=== PATIENT | female | born 1975 | race African-American/Black ===

== ENCOUNTER 2016-10-26 09:19 | Day surgery (SDC) | payer BC, MEDICAID ==
--- NOTE | 2016-10-25 09:34 | HISTORY AND PHYSICAL E ---
History and Physical NAME: KRISTOPHER PASCAL : 1975 AGE: 41Y ADMITTED: 10/26/2016 ROOM: CHIEF COMPLAINT: Reflux, hiatal hernia. HISTORY OF PRESENT ILLNESS: Known to me. Upper scope in 2007 shows hernia and reflux. Now, she has exacerbation of symptoms. She is for upper endoscopy. The patient presented for upper scope, awaiting gallbladder ultrasound. She did have upper scope, colonoscope, Dr. Fields. She does have reflux and constipation, abdominal pain, tummy tuck, multiple surgeries, hysterectomy, multiple recurrent abdominal wall abscesses. her primary was Dr. . PAST SURGICAL HISTORY: 1. C section x2. 2. Tummy tuck. 3. Hysterectomy. MEDICATIONS: 1. Ambien. 2. Xanax. 3. Wellbutrin. REVIEW OF SYSTEMS: CARDIAC: Negative. RESPIRATORY: Negative. ENDOCRINE: Negative. NEUROPSYCH: Mild depression. PHYSICAL EXAMINATION: VITAL SIGNS: Blood pressure is 120/80, pulse 80, respirations 18, temp is 98. HEAD, EYES, EARS, NOSE, THROAT: Normal. NECK: Supple. CARDIOVASCULAR: Normal. LUNGS: Clear. ABDOMEN: Soft. NEUROLOGIC: Exam negative. CONCLUSION: 1. Reflux. 2. Abdominal pain. 3. Nausea. 4. Vomiting. PLAN: 1. Upper scope. 2. Gallbladder ultrasound. 3. Followup office visit in the next few days. DICTATING PHYSICIAN: JACKIE DOMINIQUE M.D. [id number] PHY#: [id number] ID: [id number] JOB#: [id number] ACCT: [id number] cc:JACKIE DOMINIQUE M.D. >
[~2016-10-26 09:19] MED LIST: EPINEPHRINE INJ 1 MG/10 ML DISP.SYRIN ONE; FENTANYL CITRATE INJ/PF 100 MCG/2 ML AMPUL ONE; FLUMAZENIL INJ 0.5 MG/5 ML VIAL IV ONE; GLYCOPYRROLATE INJ 0.4 MG/2 ML VIAL ONE; NALOXONE HCL INJ/PF 0.4 MG/1 ML SDV ONE
[2016-10-26] MEDS: ONDANSETRON HCL INJ/PF 4 MG/2 ML SDV ONE ×2 (09:45→09:55)
[2016-10-26] MEDS: MIDAZOLAM 2 MG/2 ML INJ ONE ×3 (09:47→09:53)
[2016-10-26] MEDS ORDERED: ONDANSETRON HCL INJ/PF 4 MG/2 ML SDV ONE (10:04)
[2016-10-26 11:22] LABS: ABSOLUTE EOSINOPHILS # (AUTO) 0.3 10^3/uL (0.0-0.6); ABSOLUTE LYMPHOCYTES (AUTO) 2.2 10^3/uL (0.5-4.7); ABSOLUTE NEUT (AUTO) 3.8 10^3/uL (1.7-8.2); BASOPHILS % (AUTO) 0.4 % (0-2); HEMATOCRIT 37.9 % (36.0-47.0); HEMOGLOBIN 12.6 g/dL (12.0-15.5); HGB HCT DIFFERENCE -0.1; MEAN CORPUSCULAR HEMOGLOBIN 30.2 pg (27.0-33.4); MEAN CORPUSCULAR HGB CONC 33.1 g/dL (32.0-36.0); MEAN CORPUSCULAR VOLUME 91 fl (80-97); MONOCYTES % (AUTO) 13.9 % (3-13); RED BLOOD COUNT 4.15 10^6/uL (3.72-5.28); RED CELL DISTRIBUTION WIDTH 14.3 % (11.5-14.0); SEGMENTED NEUTROPHILS % (AUTO) 51.7 % (42-78); WHITE BLOOD COUNT 7.4 10^3/uL (4.0-10.5)
[2016-10-26 11:27] VITALS: BP 113/65
--- NOTE | 2016-10-26 11:37 | OPERATIVE REPORT E ---
Operative Report NAME: KRISTOPHER PASCAL : 1975 AGE: 41Y DATE OF SURGERY: 10/26/2016 ROOM: PREOPERATIVE DIAGNOSES: 1. Abdominal pain. 2. Diarrhea. POSTOPERATIVE DIAGNOSES: 1. Small hiatal hernia. 2. Mild esophagitis. 3. Mild to moderate gastritis. 4. Mild duodenitis. PROCEDURES: 1. Esophagoscopy. 2. Gastroscopy. 3. Duodenoscopy. SURGEON: JACKIE DOMINIQUE M.D. TISSUE REMOVED OR ALTERED: 1. Gastric biopsy, H. pylori. 2. Duodenal biopsy, celiac disease. ANESTHESIA: 1. Versed 6 mg. 2. Fentanyl 150 mcg. 3. Zofran 8 mg. DESCRIPTION OF PROCEDURE: After adequate sedation, pediatric scope passed under guided vision. Esophagoscopy: Junction at 36. Mild esophagitis. Small hiatal hernia. Gastroscopy: Mild gastritis. Some erythema in the antrum. Mild gastritis. Duodenoscopy: No ulcers. Mild duodenitis. Duodenal biopsy obtained for celiac disease workup. Diarrhea. Gastric biopsy, H. pylori. CONCLUSION: 1. Abdominal pain. 2. Small hiatal hernia. 3. Mild esophagitis. 4. Mild gastritis. 5. Mild duodenitis. 6. No ulcers, no bleeding. PLAN: 1. Awaiting biopsy results. 2. Patient has diarrhea. We will rule out infectious diarrhea, C. diff. 3. Will obtain lab studies. 4. Hold aspirin and nonsteroidal. 5. Patient to see us in the office in the next few days. DICTATING PHYSICIAN: JACKIE DOMINIQUE M.D. 1819M [facility]#: [id number] ID: [id number] JOB#: [id number] ACCT: [id number] cc:[facility], JACKIE DOMINIQUE M.D. >
--- NOTE | 2016-10-26 11:39 | DISCHARGE SUMMARY E ---
Discharge Summary NAME: KRISTOPHER PASCAL : 1975 AGE: 41Y ADMITTED: 10/26/2016 DISCHARGED: 10/26/2016 HISTORY: The patient is a 41-year-old female who underwent upper scope for abdominal pain, diarrhea. She does have a history of reflux, history of constipation, now she presents with diarrhea. She has tummy tuck, abdominal pain, history of abscesses in her abdominal wall, previous history of antibiotic. DISCHARGE PLAN: 1. Will obtain stool for C. diff. 2. Will do lab studies. 3. Continue present management. 4. Patient to see us in the office in the next few days. 5. Awaiting biopsy results. FINAL DIAGNOSES: 1. Diarrhea, etiology undetermined. 2. Reflux. 3. Gastritis. 4. Duodenitis. MEDICATIONS: The patient's medications are: 1. She takes Percocet for pain. 2. She takes Ambien. 3. Nexium. 4. Protonix. 5. Xanax. DICTATING PHYSICIAN: JACKIE DOMINIQUE M.D. [id number] [id number] PHY#: [id number] ID: [id number] JOB#: [id number] ACCT: [id number] cc:[facility], JACKIE DOMINIQUE M.D. >
[2016-10-26 11:45] LABS: ALANINE AMINOTRANSFERASE 19 U/L (9-52); ALBUMIN 3.8 g/dL (3.5-5.0); ALKALINE PHOSPHATASE 73 U/L (38-126); AMYLASE 38 U/L (30-110); ANION GAP 12 (5-19); ASPARTATE AMINO TRANSFERASE 20 U/L (14-36); BILIRUBIN,DIRECT 0.3 mg/dL (0.0-0.4); BILIRUBIN,TOTAL 0.6 mg/dL (0.2-1.3); BLOOD UREA NITROGEN 8 mg/dL (7-20); C-REACTIVE PROTEIN 43.6 mg/L (<10.0); CALCIUM 9.1 mg/dL (8.4-10.2); CARBON DIOXIDE 24 mmol/L (22-30); CHLORIDE 101 mmol/L (98-107); CREATININE RESULT 0.72 mg/dL (0.52-1.25); GLUCOSE 156 mg/dL (75-110); LIPASE 31.4 U/L (23-300); POTASSIUM 3.9 mmol/L (3.6-5.0); SODIUM 137.1 mmol/L (137-145); TOTAL PROTEIN 6.9 g/dL (6.3-8.2)
[2016-10-26 12:05] LABS: ERYTHROCYTE SEDIMENTATION RATE 32 mm/hr (0-20)
== END 2016-10-26 11:25 | disposition home or self-care (01) ==
LOC: END 09:19
PROVIDERS: ATTEND Specialist
PROC: 0DB98ZX Excision of Duodenum, Via Natural or Artificial Opening Endoscopic, Diagnostic (ICD-10-PCS; 2016-10-26)
PROC: 0DB68ZX Excision of Stomach, Via Natural or Artificial Opening Endoscopic, Diagnostic (ICD-10-PCS; principal; 2016-10-26 10:00)
DX: K21.0 Gastro-esophageal reflux disease with esophagitis (principal); K31.9 Disease of stomach and duodenum, unspecified; K29.80 Duodenitis without bleeding; K44.9 Diaphragmatic hernia without obstruction or gangrene; Z79.899 Other long term (current) drug therapy
CPT/HCPCS: 99284; 96372; 96374; 43239; 36415; 82150; 83690; 85025; 85652; 86140; 80053; 81001; 87493 ×2; 88342 ×2; 88305 ×2; J2250; J0500; J3010; J2270; J2405; J3490; J7030; J0171; J2310

== ENCOUNTER 2016-10-26 11:38 | Emergency (ER) | payer BC ==
[2016-10-26] MEDS ORDERED: NORMAL SALINE 1000 ML 1,000 ML IV ONE (12:07)
--- NOTE | 2016-10-26 12:07 | ER Document Report ---
ED Medical Screen (RME) - General Chief Complaint: Abdominal Pain Stated Complaint: ABDOMINAL PAIN,NAUSEA,VOMITING Time Seen by Provider: 10/26/16 11:52 Mode of Arrival: Ambulatory Information source: Patient Notes: This is a 41-year-old female who states that she was told by Dr. Leal today to present to the ER for further evaluation of abdominal pain and diarrhea. She states that she has a long history of abdominal pain and in fact has had 2 recent surgeries for an abdominal wall abscess. These procedures were done in [place] where the patient lives. However she previously lived here in [place] and had been followed by Dr. Leal, so she returned to [place] to have an endoscopy done today. She did have the endoscopy done and after completion of the procedure continued to report abdominal discomfort and diarrhea so she was encouraged to present to the ER. She has been on and off antibiotics for the past few months secondary to the abscess. She denies fevers or chills. She states she did vomit this morning. I have greeted and performed a rapid initial assessment of this patient. A comprehensive ED assessment and evaluation of the patient, analysis of test results and completion of the medical decision making process will be conducted by additional ED providers. TRAVEL OUTSIDE OF THE [place] IN LAST 30 DAYS: No - Related Data Allergies/Adverse Reactions: ciprofloxacin [From Cipro] Allergy (Severe, Verified 10/26/16 11:51) HR increased,SOB ciprofloxacin HCl [From Cipro] Allergy (Severe, Verified 10/26/16 11:51) HR increased,SOB nitrofurantoin [From Macrobid] Adverse Reaction (Severe, Verified 10/26/16 11:51 ) N/V nitrofurantoin macrocrystalline [From Macrobid] Adverse Reaction (Severe, Verified 10/26/16 11:51) N/V Past Medical History - Past Medical History Cardiac Medical History: Denies: Hx Coronary Artery Disease, Hx Heart Attack, Hx Hypertension Pulmonary Medical History: Denies: Hx Asthma, Hx Bronchitis, Hx COPD, Hx Pneumonia Neurological Medical History: Denies: Hx Cerebrovascular Accident, Hx Seizures Renal/ Medical History: Denies: Hx Peritoneal Dialysis Musculoskeltal Medical History: Denies Hx Arthritis Past Surgical History: Reports: Hx Hysterectomy. Denies: Hx Pacemaker - Immunizations Hx Diphtheria, Pertussis, Tetanus Vaccination: Yes Physical Exam - Vital signs Vitals: Temp Pulse Resp BP Pulse Ox 98.4 F 105 H 16 133/60 H 97 10/26/16 11:47 10/26/16 11:47 10/26/16 11:47 10/26/16 11:47 10/26/16 11:47 - General General appearance: Appears well In distress: None Course - Vital Signs Vital signs: Temp Pulse Resp BP Pulse Ox 98.4 F 105 H 16 133/60 H 97 10/26/16 11:47 10/26/16 11:47 10/26/16 11:47 10/26/16 11:47 10/26/16 11:47
[2016-10-26 13:03] LABS: ABSOLUTE EOSINOPHILS # (AUTO) 0.3 10^3/uL (0.0-0.6); ABSOLUTE LYMPHOCYTES (AUTO) 2.6 10^3/uL (0.5-4.7); ABSOLUTE MONOCYTES (AUTO) 1.2 10^3/uL (0.1-1.4); ABSOLUTE NEUT (AUTO) 3.5 10^3/uL (1.7-8.2); BASOPHILS % (AUTO) 0.4 % (0-2); EOSINOPHILS % (AUTO) 4.2 % (0-6); HEMATOCRIT 40.4 % (36.0-47.0); HEMOGLOBIN 13.1 g/dL (12.0-15.5); HGB HCT DIFFERENCE -1.1; LYMPHOCYTES % (AUTO) 33.6 % (13-45); MEAN CORPUSCULAR HEMOGLOBIN 29.6 pg (27.0-33.4); MEAN CORPUSCULAR HGB CONC 32.4 g/dL (32.0-36.0); MEAN CORPUSCULAR VOLUME 91 fl (80-97); MONOCYTES % (AUTO) 15.5 % (3-13); RED BLOOD COUNT 4.43 10^6/uL (3.72-5.28); RED CELL DISTRIBUTION WIDTH 14.9 % (11.5-14.0); SEGMENTED NEUTROPHILS % (AUTO) 46.3 % (42-78); WHITE BLOOD COUNT 7.6 10^3/uL (4.0-10.5)
[2016-10-26 13:08] LABS: APPEARANCE,URINE CLEAR; BILIRUBIN,URINE NEGATIVE (NEGATIVE); GLUCOSE, URINE NEGATIVE (NEGATIVE); KETONES,URINE NEGATIVE (NEGATIVE); LEUKOCYTE ESTERASE,URINE NEGATIVE (NEGATIVE); NITRITE,URINE NEGATIVE (NEGATIVE); PROTEIN,URINE NEGATIVE (NEGATIVE); URINE SPECIFIC GRAVITY 1.004; UROBILINOGEN,URINE NEGATIVE mg/dL (<2.0)
[2016-10-26 13:24] LABS: ALANINE AMINOTRANSFERASE 29 U/L (9-52); ALBUMIN 4.2 g/dL (3.5-5.0); ALKALINE PHOSPHATASE 91 U/L (38-126); ANION GAP 13 (5-19); ASPARTATE AMINO TRANSFERASE 20 U/L (14-36); BILIRUBIN,DIRECT 0.3 mg/dL (0.0-0.4); BILIRUBIN,TOTAL 0.7 mg/dL (0.2-1.3); BLOOD UREA NITROGEN 8 mg/dL (7-20); CALCIUM 9.4 mg/dL (8.4-10.2); CARBON DIOXIDE 23 mmol/L (22-30); CHLORIDE 102 mmol/L (98-107); CREATININE RESULT 0.76 mg/dL (0.52-1.25); GLUCOSE 93 mg/dL (75-110); LIPASE 36.2 U/L (23-300); SODIUM 137.6 mmol/L (137-145); TOTAL PROTEIN 7.4 g/dL (6.3-8.2)
[2016-10-26] MEDS ORDERED: MORPHINE SULFATE 10 MG/ML INJ IV ONE (14:09)
[2016-10-26] MEDS ORDERED: METRONIDAZOLE 500 MG TABLET PO ONE (14:34)
--- NOTE | 2016-10-26 14:34 | ER Document Report ---
ED General - General Chief Complaint: Abdominal Pain Stated Complaint: ABDOMINAL PAIN,NAUSEA,VOMITING Time Seen by Provider: 10/26/16 11:52 Mode of Arrival: Ambulatory Information source: Patient Notes: 41 yr old female presents with complaints of abdominal pain, nausea vomiting and diarrhea of 6 weeks intermittently worst over the past 3 days., pt was recently on 2 courses of antibiotics for mrsa abscess on the abdominal wall TRAVEL OUTSIDE OF THE [place] IN LAST 30 DAYS: No - HPI Onset: Other Onset/Duration: Persistent Quality of pain: Cramping Severity: Mild Pain Level: 1 Associated symptoms: Diarrhea, Nausea, Vomiting Exacerbated by: Denies Relieved by: Denies Similar symptoms previously: Yes Recently seen / treated by doctor: Yes - Related Data Allergies/Adverse Reactions: ciprofloxacin [From Cipro] Allergy (Severe, Verified 10/26/16 11:51) HR increased,SOB ciprofloxacin HCl [From Cipro] Allergy (Severe, Verified 10/26/16 11:51) HR increased,SOB nitrofurantoin [From Macrobid] Adverse Reaction (Severe, Verified 10/26/16 11:51 ) N/V nitrofurantoin macrocrystalline [From Macrobid] Adverse Reaction (Severe, Verified 10/26/16 11:51) N/V Past Medical History - General Information source: Patient - Social History Smoking Status: Never Smoker Cigarette use (# per day): No Chew tobacco use (# tins/day): No Smoking Education Provided: No Family History: Reviewed & Not Pertinent Patient has suicidal ideation: No Patient has homicidal ideation: No - Past Medical History Cardiac Medical History: Denies: Hx Coronary Artery Disease, Hx Heart Attack, Hx Hypertension Pulmonary Medical History: Denies: Hx Asthma, Hx Bronchitis, Hx COPD, Hx Pneumonia Neurological Medical History: Denies: Hx Cerebrovascular Accident, Hx Seizures Renal/ Medical History: Denies: Hx Peritoneal Dialysis Musculoskeltal Medical History: Denies Hx Arthritis Past Surgical History: Reports: Hx Hysterectomy. Denies: Hx Pacemaker - Immunizations Hx Diphtheria, Pertussis, Tetanus Vaccination: Yes Review of Systems - Review of Systems Notes: REVIEW OF SYSTEMS: CONSTITUTIONAL : Denies fever, chills, or sweats. Denies recent illness. EENT: Denies eye, ear, throat, or mouth pain or symptoms. Denies nasal or sinus congestion or discharge. Denies throat, tongue, or mouth swelling or difficulty swallowing. CARDIOVASCULAR: Denies chest pain. Denies palpitations or racing or irregular heart beat. Denies ankle edema. RESPIRATORY: Denies cough, cold, or chest congestion. Denies shortness of breath, difficulty breathing, or wheezing. GASTROINTESTINAL: nausea vomiting diarrhea GENITOURINARY: Denies difficulty urinating, painful urination, burning, frequency, blood in urine, or discharge. FEMALE GENITOURINARY: Denies vaginal bleeding, heavy or abnormal periods, irregular periods. Denies vaginal discharge or odor. MUSCULOSKELETAL: Denies back or neck pain or stiffness. Denies joint pain or swelling. SKIN: Denies rash, lesions or sores. HEMATOLOGIC : Denies easy bruising or bleeding. LYMPHATIC: Denies swollen, enlarged glands. NEUROLOGICAL: Denies confusion or altered mental status. Denies passing out or loss of consciousness. Denies dizziness or lightheadedness. Denies headache. Denies weakness or paralysis or loss of use of either side. Denies problems with gait or speech. Denies sensory loss, numbness, or tingling. Denies seizures. PSYCHIATRIC: Denies anxiety or stress. Denies depression, suicidal ideation, or homicidal ideation. PHYSICAL EXAMINATION: GENERAL: Well-appearing, well-nourished and in no acute distress. HEAD: Atraumatic, normocephalic. EYES: Pupils equal round and reactive to light, extraocular movements intact, conjunctiva are normal. ENT: Nares patent, oropharynx clear without exudates. Moist mucous membranes. NECK: Normal range of motion, supple without lymphadenopathy LUNGS: Breath sounds clear to auscultation bilaterally and equal. No wheezes rales or rhonchi. HEART: Regular rate and rhythm without murmurs ABDOMEN: Soft, nontender, nondistended abdomen. No guarding, no rebound. No masses appreciated. Female : deferred Musculoskeletal: Normal range of motion, no pitting or edema. No cyanosis. NEUROLOGICAL: Cranial nerves grossly intact. Normal speech, normal gait. Normal sensory, motor exams PSYCH: Normal mood, normal affect. SKIN: Warm, Dry, normal turgor, no rashes or lesions noted. ALL OTHER SYSTEMS REVIEWED AND NEGATIVE. Dictation was performed using [employer] voice recognition software Physical Exam - Vital signs Vitals: Temp Pulse Resp BP Pulse Ox 98.4 F 105 H 16 133/60 H 97 10/26/16 11:47 06/13/17 11:47 10/26/16 11:47 10/26/16 11:47 10/26/16 11:47 Course - Re-evaluation Re-evalutation: 10/26/16 16:11 pt overall looks well, labs are normal, pt is a bit anxious and admits to bina fuentes treat with iv fluids, flagyl for her c diffand dc home as it does not appear serious and has not caused any severe signs of infection After performing a Medical Screening Examination, I estimate there is LOW risk for ACUTE APPENDICITIS, BOWEL OBSTRUCTION, ACUTE CHOLECYSTITIS, PERFORATED DIVERTICULITIS, INCARCERATED HERNIA, PANCREATITIS, PELVIC INFLAMMATORY DISEASE, PERFORATED ULCER, ECTOPIC , or TUBO-OVARIAN ABSCESS, thus I consider the discharge disposition reasonable. Also, there is no evidence or peritonitis , sepsis, or toxicity. I have reevaluated this patient multiple times and no significant life threatening changes are noted. The patient and I have discussed the diagnosis and risks, and we agree with discharging home with close follow-up with the understanding that symptoms and presentations can change. We also discussed returning to the Emergency Department immediately if new or worsening symptoms occur. We have discussed the symptoms which are most concerning (e.g., bloody stool, fever, changing or worsening pain, vomiting) that necessitate immediate return. - Vital Signs Vital signs: Temp Pulse Resp BP Pulse Ox 98.4 F 105 H 16 133/60 H 97 10/26/16 11:47 10/26/16 11:47 10/26/16 11:47 10/26/16 11:47 10/26/16 11:47 - Laboratory Result Diagrams: 10/26/16 12:23 10/26/16 12:23 Laboratory results interpreted by me: 10/26/16 10/26/16 12:23 12:23 RDW 14.9 H Monocytes % 15.5 H Urine Blood LARGE H Discharge - Discharge Clinical Impression: C. difficile diarrhea Abdominal pain Qualifiers: Abdominal location: generalized Qualified Code(s): R10.84 - Generalized abdominal pain Condition: Stable Disposition: HOME, SELF-CARE Instructions: Abdominal Pain ([facility]), C. (Clostridium) Difficile Infection ([facility]) Prescriptions: Ondansetron HCl [Zofran 8 mg Tablet] 8 mg PO Q8HP PRN #30 tablet PRN Reason: Dicyclomine HCl [Bentyl 20 mg Tablet] 20 mg PO QID #40 tablet Hydrocodone/Acetaminophen [[place] 5-325 mg Tablet] 1 tab PO Q6 #14 tablet Metronidazole [Flagyl 500 mg Tablet] 500 mg PO Q8 #42 tablet Referrals: TAN IQBAL [Primary Care Provider] - Follow up as needed JACKIE DOMINIQUE MD [EMERITUS] - Follow up tomorrow
[2016-10-26] MEDS ORDERED: DICYCLOMINE HCL INJ 20 MG/2 ML AMPULE IM ONE (15:47)
[2016-10-26] MEDS ORDERED: GLYCERIN/WITCH HAZEL LEAF 1 EACH MED..PAD TP ONE (16:04)
[2016-10-26 17:58] VITALS: BP 112/61
== END 2016-10-26 17:46 | disposition home or self-care (01) ==
LOC: ER 11:38
DX: A04.7 Enterocolitis due to Clostridium difficile (principal); R10.84 Generalized abdominal pain; R11.2 Nausea with vomiting, unspecified; R10.9 Unspecified abdominal pain; Z88.3 Allergy status to other anti-infective agents; Z90.710 Acquired absence of both cervix and uterus
CPT/HCPCS: 99284; 96372; 96374; 36415; 83690; 85025; 80053; 81001; J0500; J2270; J3490; J7030

== ENCOUNTER 2016-11-02 16:43 | Emergency (ER) | payer BC ==
--- NOTE | 2016-11-02 17:36 | ER Document Report ---
ED Medical Screen (RME) - General Chief Complaint: abdominal pain, diarrhea Stated Complaint: DIARRHEA,NAUSEA,ABDOMINAL PAIN Time Seen by Provider: 11/02/16 17:27 Notes: -year-old female patient had upper endoscopy on 10/26/2016 for several weeks of diarrhea. A stool specimen that day had positive C. difficile toxins. She came to the emergency room later that day and was put on Flagyl. Her symptoms have not improved any, and her prescription was changed to Dificid--she has not gotten insurance approval and has not started the medication. I have greeted and performed a rapid initial assessment of this patient. A comprehensive ED assessment and evaluation of the patient, analysis of test results and completion of the medical decision making process will be conducted by additional ED providers. TRAVEL OUTSIDE OF THE [place] IN LAST 30 DAYS: No - Related Data Allergies/Adverse Reactions: ciprofloxacin [From Cipro] Allergy (Severe, Verified 10/26/16 11:51) HR increased,SOB ciprofloxacin HCl [From Cipro] Allergy (Severe, Verified 10/26/16 11:51) HR increased,SOB nitrofurantoin [From Macrobid] Adverse Reaction (Severe, Verified 10/26/16 11:51 ) N/V nitrofurantoin macrocrystalline [From Macrobid] Adverse Reaction (Severe, Verified 10/26/16 11:51) N/V Past Medical History - Past Medical History Cardiac Medical History: Denies: Hx Coronary Artery Disease, Hx Heart Attack, Hx Hypertension Pulmonary Medical History: Denies: Hx Asthma, Hx Bronchitis, Hx COPD, Hx Pneumonia Neurological Medical History: Denies: Hx Cerebrovascular Accident, Hx Seizures Renal/ Medical History: Denies: Hx Peritoneal Dialysis Musculoskeltal Medical History: Denies Hx Arthritis Past Surgical History: Reports: Hx Hysterectomy. Denies: Hx Pacemaker - Immunizations Hx Diphtheria, Pertussis, Tetanus Vaccination: Yes
[2016-11-02 18:27] LABS: ABSOLUTE BASOPHILS # (AUTO) 0.1 10^3/uL (0.0-0.2); ABSOLUTE EOSINOPHILS # (AUTO) 0.3 10^3/uL (0.0-0.6); ABSOLUTE LYMPHOCYTES (AUTO) 2.7 10^3/uL (0.5-4.7); ABSOLUTE MONOCYTES (AUTO) 0.5 10^3/uL (0.1-1.4); ABSOLUTE NEUT (AUTO) 3.3 10^3/uL (1.7-8.2); BASOPHILS % (AUTO) 1.1 % (0-2); EOSINOPHILS % (AUTO) 4.8 % (0-6); HEMATOCRIT 44.8 % (36.0-47.0); HEMOGLOBIN 14.3 g/dL (12.0-15.5); HGB HCT DIFFERENCE -1.9; LYMPHOCYTES % (AUTO) 39.1 % (13-45); MEAN CORPUSCULAR HEMOGLOBIN 29.7 pg (27.0-33.4); MEAN CORPUSCULAR VOLUME 93 fl (80-97); MONOCYTES % (AUTO) 7.2 % (3-13); RED BLOOD COUNT 4.83 10^6/uL (3.72-5.28); RED CELL DISTRIBUTION WIDTH 14.6 % (11.5-14.0); SEGMENTED NEUTROPHILS % (AUTO) 47.8 % (42-78); WHITE BLOOD COUNT 6.9 10^3/uL (4.0-10.5)
[2016-11-02 19:31] LABS: AMORPHOUS SEDIMENT,URINE TRACE /HPF; APPEARANCE,URINE SLIGHTLY-CLOUDY; BILIRUBIN,URINE NEGATIVE (NEGATIVE); CALCIUM OXALATE CRYSTALS,URINE TOO NUMEROUS TO CNT /HPF; GLUCOSE, URINE NEGATIVE (NEGATIVE); KETONES,URINE NEGATIVE (NEGATIVE); LEUKOCYTE ESTERASE,URINE TRACE (NEGATIVE); NITRITE,URINE NEGATIVE (NEGATIVE); PROTEIN,URINE NEGATIVE (NEGATIVE); URINE SPECIFIC GRAVITY 1.016; UROBILINOGEN,URINE NEGATIVE mg/dL (<2.0)
[2016-11-02 20:51] LABS: ALANINE AMINOTRANSFERASE 28 U/L (9-52); ALBUMIN 3.8 g/dL (3.5-5.0); ALKALINE PHOSPHATASE 82 U/L (38-126); ANION GAP 12 (5-19); ASPARTATE AMINO TRANSFERASE 21 U/L (14-36); BILIRUBIN,DIRECT 0.3 mg/dL (0.0-0.4); BILIRUBIN,TOTAL 0.5 mg/dL (0.2-1.3); BLOOD UREA NITROGEN 4 mg/dL (7-20); CALCIUM 9.4 mg/dL (8.4-10.2); CARBON DIOXIDE 26 mmol/L (22-30); CHLORIDE 106 mmol/L (98-107); CREATININE RESULT 0.63 mg/dL (0.52-1.25); GLUCOSE 84 mg/dL (75-110); POTASSIUM 3.4 mmol/L (3.6-5.0); SODIUM 143.5 mmol/L (137-145); TOTAL PROTEIN 6.7 g/dL (6.3-8.2)
[2016-11-02] MEDS ORDERED: NORMAL SALINE 1000 ML 1,000 ML IV ONE (20:54)
[2016-11-02] MEDS ORDERED: MORPHINE SULFATE 10 MG/ML INJ IV PRN (20:55)
[2016-11-02] MEDS ORDERED: VANCOMYCIN HCL INJ 500 MG VIAL PO ONE (20:55)
[2016-11-02] MEDS ORDERED: ONDANSETRON HCL INJ/PF 4 MG/2 ML SDV IV ONE (20:55)
--- NOTE | 2016-11-02 20:56 | ER Document Report ---
ED General - General Chief Complaint: Diarrhea Stated Complaint: DIARRHEA,NAUSEA,ABDOMINAL PAIN Time Seen by Provider: 11/02/16 17:27 Notes: Patient is a 41-year-old female recently diagnosed with C. difficile colitis who is completed a seven-day course of Flagyl who presents with ongoing abdominal cramping, difficulty tolerating oral intake secondary to nausea and abdominal cramping with p.o. intake as well as persistent diarrhea. She was seen by her equipment operat0r was recently transitioned her to oral vancomycin therapy but she has not yet filled this prescription. Notes that she has been able to tolerate oral fluids but food causes her to have abdominal pain. Does describe her abdominal pain as mild, diffuse and cramping in nature. Nothing improves or worsens her symptoms. Denies history of similar symptoms in the past. She was recently on antibiotics secondary to an abdominal wall abscess. TRAVEL OUTSIDE OF THE [place] IN LAST 30 DAYS: No - Related Data Allergies/Adverse Reactions: ciprofloxacin [From Cipro] Allergy (Severe, Verified 10/26/16 11:51) HR increased,SOB ciprofloxacin HCl [From Cipro] Allergy (Severe, Verified 10/26/16 11:51) HR increased,SOB nitrofurantoin [From Macrobid] Adverse Reaction (Severe, Verified 10/26/16 11:51 ) N/V nitrofurantoin macrocrystalline [From Macrobid] Adverse Reaction (Severe, Verified 10/26/16 11:51) N/V Past Medical History - General Information source: Patient - Social History Smoking Status: Never Smoker Frequency of alcohol use: None Drug Abuse: None Lives with: Family Family History: Reviewed & Not Pertinent - Past Medical History Cardiac Medical History: Denies: Hx Coronary Artery Disease, Hx Heart Attack, Hx Hypertension Pulmonary Medical History: Denies: Hx Asthma, Hx Bronchitis, Hx COPD, Hx Pneumonia Neurological Medical History: Denies: Hx Cerebrovascular Accident, Hx Seizures Renal/ Medical History: Denies: Hx Peritoneal Dialysis Musculoskeltal Medical History: Denies Hx Arthritis Past Surgical History: Reports: Hx Hysterectomy. Denies: Hx Pacemaker - Immunizations Hx Diphtheria, Pertussis, Tetanus Vaccination: Yes Review of Systems - Review of Systems Notes: Constitutional: Negative for fever. HENT: Negative for sore throat. Eyes: Negative for visual changes. Cardiovascular: Negative for chest pain. Respiratory: Negative for shortness of breath. Gastrointestinal: Positive for abdominal pain diarrhea and nausea Genitourinary: Negative for dysuria. Musculoskeletal: Negative for back pain. Skin: Negative for rash. Neurological: Negative for headaches, weakness or numbness. 10 point ROS negative except as marked above and in HPI. Physical Exam - Vital signs Vitals: Temp Pulse Resp BP Pulse Ox 97.6 F 81 17 121/69 98 11/02/16 22:40 11/02/16 22:40 11/02/16 22:40 11/02/16 22:40 11/02/16 22:40 Interpretation: Normal Notes: PHYSICAL EXAMINATION: GENERAL: Well-appearing, well-nourished and in no acute distress. HEAD: Atraumatic, normocephalic. EYES: Pupils equal round and reactive to light, extraocular movements intact, sclera anicteric, conjunctiva are normal. ENT: nares patent, oropharynx clear without exudates. Moist mucous membranes. NECK: Normal range of motion, supple without lymphadenopathy LUNGS: Breath sounds clear to auscultation bilaterally and equal. No wheezes rales or rhonchi. HEART: Regular rate and rhythm without murmurs ABDOMEN: Soft, mild diffuse tenderness without focal tenderness, normoactive bowel sounds. No guarding, no rebound. No masses appreciated. EXTREMITIES: Normal range of motion, no pitting or edema. No cyanosis. NEUROLOGICAL: No focal neurological deficits. Moves all extremities spontaneously and on command. PSYCH: Normal mood, normal affect. SKIN: Warm, Dry, normal turgor, no rashes or lesions noted. Course - Re-evaluation Re-evalutation: 11/02/16 20:56 Patient presents with persistent C. difficile colitis with diffuse abdominal pain, persistent diarrhea, and pain with oral intake despite a 7 day course of oral Flagyl. States she has been taking all antibiotics as directed without any improvement in her symptoms. Patient does have some diffuse mild tenderness on abdominal exam but otherwise unremarkable examination. Laboratories are overall unremarkable. She is being transitioned to oral vancomycin as an outpatient. Her laboratories do not show any significant dehydration. I discussed with the hospitalist Dr. Arora who feels the patient is safe for discharge home and does not meet admission criteria. He has recommended trying cholestyramine given the patient's overall well appearance, vitals and labs I think this is not an unreasonable course. At this time will discharge with return precautions and follow-up recommendations. Verbal discharge instructions given a the bedside and opportunity for questions given. Medication warnings reviewed. Patient is in agreement with this plan and has verbalized understanding of return precautions and the need for primary care follow-up in the next 24-72 hours. - Vital Signs Vital signs: Temp Pulse Resp BP Pulse Ox 97.6 F 81 17 121/69 98 11/02/16 22:40 11/02/16 22:40 11/02/16 22:40 11/02/16 22:40 11/02/16 22:40 - Laboratory Result Diagrams: 11/02/16 17:55 11/02/16 20:20 Laboratory results interpreted by me: 11/02/16 11/02/16 11/02/16 17:55 17:55 20:20 RDW 14.6 H Potassium 3.4 L BUN 4 L Urine Blood MODERATE H Ur Leukocyte Esterase TRACE H Discharge - Discharge Clinical Impression: Clostridium difficile diarrhea, Abdominal pain Condition: Good Disposition: HOME, SELF-CARE Additional Instructions: Please take the oral vancomycin that was called in to her pharmacy. This will be the only thing that actually help resolve your symptoms. You can take the Zofran you were sent home with as needed for nausea and the cholestyramine as needed for diarrhea. For your pain: Take ibuprofen 600 mg and acetaminophen 1000 mg every 6 hours together as needed for pain. If this does not control your pain you may take 15 mg of oral morphine every 4 hours as needed. Please be very careful about using the oral morphine and only use this for severe pain. Return if you become unable to tolerate fluids or your medicines, develop a fever greater than 100.4F, have persistent vomiting, worsening pain, or any other symptoms that are worrisome to you. Prescriptions: Morphine Sulfate [Morphine Ir 15 mg Tablet] 15 mg PO Q4HP PRN #12 tablet PRN Reason: Cholestyramine/Aspartame [Prevalite Packet] 4 gm PO Q6HP PRN #10 packet PRN Reason: Ondansetron [Zofran Odt 4 mg Tablet] 1 - 2 tab PO Q4H PRN #15 tab.rapdis PRN Reason: For Nausea/Vomiting
[2016-11-02] MEDS ORDERED: CHOLESTYRAMINE/ASPARTAME 4 GM PACKET PO ONE (21:02)
[2016-11-02] MEDS ORDERED: ONDANSETRON 4 MG TAB.RAPDIS PO ONE (21:11)
[2016-11-02] MEDS ORDERED: HYDROMORPHONE HCL INJ/PF 2 MG/ML AMPULE IM ONE (21:11)
[2016-11-02] MEDS ORDERED: METOCLOPRAMIDE HCL ORAL SOLN 10 MG/10 ML UDCUP PO ONE (22:29)
[2016-11-02] MEDS ORDERED: LIDOCAINE 2% VISCOUS SOLN 20 ML UDCUP PO ONE (22:29)
[2016-11-02] MEDS ORDERED: MAG HYDROX/AL HYDROX/SIMETH SUSP 30 ML UDCUP PO ONE (22:29)
[2016-11-02 22:43] VITALS: BP 121/69
== END 2016-11-02 22:40 | disposition home or self-care (01) ==
LOC: ER 16:43
DX: A04.7 Enterocolitis due to Clostridium difficile (principal); R11.0 Nausea; R10.84 Generalized abdominal pain; Z88.1 Allergy status to other antibiotic agents; Z90.710 Acquired absence of both cervix and uterus
CPT/HCPCS: 99284; 96372; 36415; 87040; 85025; 80053; 81001; J3490 ×2; S0119; J1170; J3370

== ENCOUNTER → 2017-02-01 | Outpatient (CLI) | payer BC ==
--- NOTE | 2017-02-01 14:10 | RADIOLOGY REPORT (SQ) ---
EXAM DESCRIPTION: KUB COMPLETED DATE/TIME: 02/01/2017 1:31 pm REASON FOR STUDY: GENERALIZED ABDOMINAL PAIN R10.84 GENERALIZED ABDOMINAL PAIN COMPARISON: 10/09/2009. NUMBER OF VIEWS: One view. TECHNIQUE: Supine radiographic image of the abdomen acquired. LIMITATIONS: None. FINDINGS: BOWEL GAS PATTERN: Normal bowel gas pattern. Moderate stool throughout. No dilated loops . CALCIFICATIONS: No suspicious calcifications. SOFT TISSUES: No gross mass or suggestion of organomegaly. HARDWARE: None in the abdomen. BONES: No acute fracture. No worrisome bone lesions. OTHER: No other significant finding. IMPRESSION: NO RADIOGRAPHIC EVIDENCE FOR ACUTE ABDOMINAL DISEASE. TECHNICAL DOCUMENTATION: JOB ID: [id number] [employer]- All Rights Reserved
== END ==
LOC: OD 13:09
PROVIDERS: ATTEND Physician Assistant
DX: R10.84 Generalized abdominal pain (principal)
CPT/HCPCS: 74000

== ENCOUNTER 2017-02-09 08:34 | Day surgery (SDC) | payer BC ==
--- NOTE | 2017-02-02 14:45 | HISTORY AND PHYSICAL E ---
History and Physical NAME: KRISTOPHER PASCAL : 1975 AGE: 41Y ADMITTED: 02/09/2017 ROOM: HISTORY: Patient presented at this time regarding colonoscopy. Reviewing the records in the system, I saw the patient back on 07/24/2007 regarding abnormal upper GI series showing delayed gastric emptying. Pyloric channel was extremely difficult to profile at the upper GI question. Some related gastric outlet obstruction from peptic involvement of the pylorus back on 07/24/2007. The patient had again upper GI series and it showed delayed gastric emptying and pyloric channel was extremely difficult to profile. A question related gastric peptic involvement. The patient did have colonoscopy in 2007. We did colonoscopy for severe constipation, family history of cancer. Colonoscopy done in 2007 showing no polyps, no malignancy. The patient did have severe constipation, redundant colon adhesions, no evidence of polyps. SOCIAL HISTORY: She smokes rarely. Does not drink. ALLERGIES: CIPRO. PAST SURGICAL HISTORY: 1. x2. 2. Abdominal surgery, tummy tuck. REVIEW OF SYSTEMS: CARDIAC: Negative. ENDOCRINE: Negative. GASTROINTESTINAL: Constipation. NEUROPSYCHIATRIC: She does have mild bipolar and depression. PHYSICAL EXAMINATION: VITAL SIGNS: Blood pressure 100/70, pulse 80, respirations 20, temperature is 98. HEAD, EYES, EARS, NOSE, THROAT: Normal. NECK: Supple. LUNGS: Clear. ABDOMEN: Soft. NEUROLOGIC: Exam negative. IMPRESSION: Patient presented with diarrhea. She does have history of Clostridium Difficile. She does have reflux. She is being treated with Phenergan and Bentyl. She was given vancomycin for Clostridium Difficile. She will use Diflucan for candidiasis. Again, she is allergic to CIPRO. Reflux. Colonoscopy in 2007. She does have history of hemorrhoids. CONCLUSION: 1. Colon screening. 2. Family history of colorectal malignancy. 3. She presented to us with weight loss and abdominal pain. 4. Patient scheduled for colonoscopy to be done in the OR. 5. Admit 02/09/2017. DICTATING PHYSICIAN: JACKIE DOMINIQUE M.D. [id number] PHY#: [id number] ID: [id number] JOB#: [id number] ACCT: [id number] cc:JACKIE DOMINIQUE M.D. >
[~2017-02-09 08:34] MED LIST changes: -EPINEPHRINE INJ 1 MG/10 ML DISP.SYRIN ONE; -FENTANYL CITRATE INJ/PF 100 MCG/2 ML AMPUL ONE; -FLUMAZENIL INJ 0.5 MG/5 ML VIAL IV ONE; +GLUCAGON,HUMAN RECOMB 1 MG INJ ONE; -GLYCOPYRROLATE INJ 0.4 MG/2 ML VIAL ONE; +LACTATED RINGERS 1000 ML IV PRN; +LIDOCAINE 0.5% INJ-PF (5 MG/ML) 50 ML SDV SUBCUT PRN; +LIDOCAINE 2% JELLY 30 ML TUBE ONE; -NALOXONE HCL INJ/PF 0.4 MG/1 ML SDV ONE
[2017-02-09] MEDS ORDERED: MIDAZOLAM 2 MG/2 ML INJ ONE (09:09)
[2017-02-09] MEDS ORDERED: PROPOFOL INJ 200 MG/20 ML VIAL IV ONE (09:10)
[2017-02-09] MEDS ORDERED: FENTANYL CITRATE INJ/PF 100 MCG/2 ML AMPUL IV PRN ×3 (10:38)
[2017-02-09] MEDS ORDERED: DIPHENHYDRAMINE HCL 50 MG/ML VIAL IV PRN (10:38)
[2017-02-09] MEDS ORDERED: PROMETHAZINE HCL INJ 25 MG/1 ML VIAL IV PRN (10:38)
[2017-02-09 11:46] VITALS: BP 123/73
[2017-02-09] MEDS ORDERED: ONDANSETRON HCL INJ/PF 4 MG/2 ML SDV ONE (11:50)
[2017-02-09] MEDS ORDERED: LIDOCAINE 2% INJ-PF (20 MG/ML) 10 ML AMPUL ONE (11:50)
--- NOTE | 2017-02-09 12:19 | OPERATIVE REPORT E ---
Operative Report NAME: KRISTOPHER PASCAL : 1975 AGE: 41Y DATE OF SURGERY: 02/09/2017 ROOM: PREOPERATIVE DIAGNOSES: 1. Weight loss. 2. Abdominal pain. 3. Family history of colon cancer. POSTOPERATIVE DIAGNOSIS: External hemorrhoids. PROCEDURE: Colonoscopy. SURGEON: JACKIE DOMINIQUE M.D. TISSUE REMOVED OR ALTERED: None. ANESTHESIA: Done in the OR with anesthesia standby. ALLERGIES: 1. CIPRO. 2. AUGMENTIN. 3. MACROBID. DESCRIPTION OF PROCEDURE: Rectal exam shows external hemorrhoids, mild rectum, otherwise external hemorrhoids. Normal rectum. Sigmoid descending colon normal. Transverse colon normal. Ascending colon normal. Cecum normal. Scope withdrawn from cecum, ascending, transverse, descending, sigmoid all the way to the rectum. CONCLUSION: External hemorrhoids. No evidence of malignancy. Patient tolerated the procedure well, discharged to recovery room in stable condition. DICTATING PHYSICIAN: JACKIE DOMINIQUE M.D. [id number] PHY#: [id number] ID: [id number] JOB#: [id number] ACCT: [id number] cc:JACKIE DOMINIQUE M.D. >
--- NOTE | 2017-02-09 12:41 | DISCHARGE SUMMARY E ---
Discharge Summary NAME: KRISTOPHER PASCAL : 1975 AGE: 41Y ADMITTED: 02/09/2017 DISCHARGED: 02/09/2017 SUMMARY: The patient is a 41-year-old female who presented with weight loss and abdominal pain and family history of colorectal malignancy, underwent colon exam today in the OR with Anesthesia standby. She did have no polyps, no malignancy, mild external hemorrhoids, successful colonoscopy to the cecum. DISCHARGE PLAN: 1. Soft, low-fat diet for today. 2. Hold aspirin and nonsteroidals for 5 days. 3. Patient is to hold Motrin for 1 week. She is on Motrin 800 mg. 4. She is to continue her Ambien. She takes Ambien 10 mg. She takes zolpidem at bedtime. 5. She is taking Xanax 1.5 mg p.o. at bedtime. CONCLUSIONS: Colonoscopy showing no polyps, no malignancy, external hemorrhoids. The patient does have a history of weight loss, and her colon in 2007 showed no cancer, and today's colon shows no cancer. She has a redundant colon with adhesions, no evidence of polyps, no evidence of malignancy. DICTATING PHYSICIAN: JACKIE DOMINIQUE M.D. [id number] PHY#: [id number] ID: [id number] JOB#: [id number] ACCT: [id number] cc:JACKIE DOMINIQUE M.D. >
== END 2017-02-09 12:00 | disposition home or self-care (01) ==
LOC: OROUT 08:34
PROVIDERS: ATTEND Specialist
PROC: 0DJD8ZZ Inspection of Lower Intestinal Tract, Via Natural or Artificial Opening Endoscopic (ICD-10-PCS; principal; 2017-02-09 10:00)
DX: K64.4 Residual hemorrhoidal skin tags (principal); Z80.0 Family history of malignant neoplasm of digestive organs; R63.4 Abnormal weight loss; F31.9 Bipolar disorder, unspecified; F17.210 Nicotine dependence, cigarettes, uncomplicated; Z88.1 Allergy status to other antibiotic agents; Z68.25 Body mass index [BMI] 25.0-25.9, adult; Z79.899 Other long term (current) drug therapy; Z79.1 Long term (current) use of non-steroidal anti-inflammatories (NSAID)
CPT/HCPCS: 45378; J2250; J1610; J2405; J2704; J3490; 810

== ENCOUNTER → 2017-05-06 | Outpatient (CLI) | payer BC ==
--- NOTE | 2017-05-06 16:29 | RADIOLOGY REPORT (SQ) ---
EXAM DESCRIPTION: MRI THORACIC SPINE WITHOUT COMPLETED DATE/TIME: 05/06/2017 1:01 pm REASON FOR STUDY: M54.6 CHRONIC THORACIC SPINE PAIN M54.6 PAIN IN THORACIC SPINE COMPARISON: AP chest 01/16/2010 TECHNIQUE: Sagittal and Axial imaging includes T1, T2, STIR and gradient echo sequences. LIMITATIONS: None. FINDINGS: LOCALIZER: No worrisome findings. ALIGNMENT: Normal. VERTEBRAE: Intact. BONE MARROW: Normal. No marrow replacement or reactive changes. HARDWARE: None in the spine. CORD: Normal in size and signal intensity. SOFT TISSUES: No soft tissue masses. THORACIC DISCS T1-T12: No significant spinal stenosis or exit foraminal stenosis. Mild bilateral fac et arthropathy from T5-6 through T9-10. LOWER CERVICAL: Incompletely imaged. No significant spinal stenosis or exit foraminal stenosis. UPPER LUMBAR: Incompletely imaged. No significant spinal stenosis or exit foraminal stenosis. OTHER: No other significant finding. IMPRESSION: None thoracic wedge compression deformity. No thoracic spine disc protrusion or herniat ion. Mild mid thoracic facet arthropathy TECHNICAL DOCUMENTATION: JOB ID: [id number] [employer]- All Rights Reserved
== END ==
LOC: RAD 13:47
PROVIDERS: ATTEND Physician Assistant
DX: M54.6 Pain in thoracic spine (principal)
CPT/HCPCS: 72146

== ENCOUNTER 2017-07-06 07:40 | Day surgery (SDC) | payer BC ==
[~2017-07-06 07:40] MED LIST changes: -GLUCAGON,HUMAN RECOMB 1 MG INJ ONE; -LACTATED RINGERS 1000 ML IV PRN; -LIDOCAINE 0.5% INJ-PF (5 MG/ML) 50 ML SDV SUBCUT PRN; -LIDOCAINE 2% JELLY 30 ML TUBE ONE; +PROPOFOL INJ 200 MG/20 ML VIAL IV ONE
[2017-07-06] MEDS ORDERED: SIMETHICONE 80 MG TAB.CHEW ONE (08:58)
[2017-07-06 09:41] VITALS: BP 132/78
--- NOTE | 2017-07-06 16:01 | Operative Report ---
Operative Report DATE OF SURGERY: 07/06/17 Operative Report: The risks, benefits and alternatives of the procedure including risks of bleeding, perforation requiring surgery are explained to the patient in detail and informed consent is obtained. Patient brought back to the endoscopy suite and placed in the left, lateral decubital position. Timeout was called. Propofol medications administered. A rectal examination is done which did not reveal any masses, tears or fissures. An Olympus videoscope was inserted the patient's rectum. The scope was then carefully advanced all the way to the cecum. The cecum was identified by the usual anatomical landmarks including the ileocecal valve as well as the appendiceal office. Photodocumentation is obtained. Patient does have a redundant colon. The scope was then sequentially pulled back via the rest segments of the colon including the ascending colon, hepatic flexure, transverse colon, splenic flexure, descending colon and finally into the rectosigmoid portions of the colon. Retroflexion maneuvers performed. The risks benefits and alternatives of the procedure explained to the patient in detail and informed consent is obtained.A GIF Olympus video scope was inserted into the patient's mouth and hypopharynx ,the esophagus is identified intubated and insufflated, the scope was then advanced through the esophagus stomach and duodenum, retroflexion maneuver is done, the esophagus stomach and first and second portions of the duodenum examined PREOPERATIVE DIAGNOSIS: Epigastric pain rule out peptic ulcer disease. Change of bowel habits POSTOPERATIVE DIAGNOSIS: Colonoscopy does appear to be grossly normal, no evidence of ulcerative colitis, Crohn's disease or pseudomembranous colitis. Random biopsies taken of the right side to rule out lymphocytic, collagenous, microscopic colitis. Hiatal hernia. Gastritis. Probable adhesions OPERATION: Colonoscopy with biopsy. EGD with biopsy SURGEON: YEVGENIY BENITES ANESTHESIA: LMAC TISSUE REMOVED OR ALTERED: As noted above. COMPLICATIONS: None. ESTIMATED BLOOD LOSS: None. INTRAOPERATIVE FINDINGS: As noted above. PROCEDURE: Patient tolerated procedure well. No immediate postprocedure complications are noted. Patient discharged in good condition. Discharge date 07/06/2017. Discharge diet: Regular. Discharge activity: Regular. 2-3 week follow-up to discuss findings. Patient is instructed to call the office or proceed to the emergency room should there be any further problems or questions. We will await pathology.
== END 2017-07-06 09:25 | disposition home or self-care (01) ==
LOC: END 07:40
PROVIDERS: ATTEND Internal Medicine Gastroenterology
PROC: 0DB68ZX Excision of Stomach, Via Natural or Artificial Opening Endoscopic, Diagnostic (ICD-10-PCS; principal; 2017-07-06 09:00)
PROC: 0DBE8ZX Excision of Large Intestine, Via Natural or Artificial Opening Endoscopic, Diagnostic (ICD-10-PCS; 2017-07-06 09:00)
DX: K29.30 Chronic superficial gastritis without bleeding (principal); K44.9 Diaphragmatic hernia without obstruction or gangrene; K31.9 Disease of stomach and duodenum, unspecified; R10.13 Epigastric pain; R10.31 Right lower quadrant pain; R19.4 Change in bowel habit; Z88.8 Allergy status to other drugs, medicaments and biological substances
CPT/HCPCS: 43239; 45380; 88342 ×2; 88305 ×2; J2704; 813